=== PATIENT | male | born 1960 | race Caucasian/White ===

== ENCOUNTER → 2019-05-08 14:36 | Outpatient (BNVA) | payer MEDICARE, MEDICAID, SELFPAY | PROVIDERS: Family Provider Family Medicine; PCP Family Medicine; Visit Provider Internal Medicine Rheumatology | DX: L40.50 Arthropathic psoriasis, unspecified (principal); L40.8 Other psoriasis; Z79.899 Other long term (current) drug therapy; Z94.1 Heart transplant status; I10 Essential (primary) hypertension | CPT/HCPCS: 99214 ==

== ENCOUNTER 2020-06-04 11:19 | Outpatient (CLI) | payer MEDICARE, MEDICAID, SELFPAY ==
--- NOTE | 2020-06-04 11:27 | XR_ITS ---
WS: [id number] Right foot, 3 views, 06/04/2020 Clinical Data: ACUTE PAIN OF RIGHT FOOT Comparison: Right foot, 11/17/2015. Findings: No fractures or dislocations are seen. No bone destruction or erosion is noted. There is a bunion of the head of the right first metatarsal. There is a large plantar spur and an Achilles spur. The soft tissues are normal. XR/XR foot RT min 3V* [id number] Impression: Small bunion at the head of the right first metatarsal.
--- NOTE | 2020-06-04 11:27 | XR_ITS ---
WS: [id number] Right ankle, 3 views, 06/04/2020 Clinical Data: ACUTE RIGHT ANKLE PAIN Comparison: None. Findings: No fractures or dislocations are seen. The ankle mortise is normal. There is osteoarthritic change at the tip of the medial malleolus also the lateral malleolus.There is a large plantar spur and an Achi lles spur. XR/XR ankle RT min 3V* [id number] Impression: Osteoarthritic change at the tip of the medial malleolus and also the lateral m alleolus of the right ankle.
== END 2020-06-04 11:20 | disposition home or self-care (01) ==
PROVIDERS: Family Provider Family Medicine; PCP Family Medicine; Visit Provider Nurse Practitioner
DX: M25.571 Pain in right ankle and joints of right foot (principal); M21.611 Bunion of right foot
CPT/HCPCS: 73610; 73630

== ENCOUNTER → 2020-07-21 15:30 | Outpatient (BNVA) | payer MEDICARE, MEDICAID, SELFPAY | PROVIDERS: Family Provider Family Medicine; PCP Family Medicine; Referring Provider Nurse Practitioner; Visit Provider Podiatrist Foot & Ankle Surgery | DX: M79.671 Pain in right foot (principal); M19.071 Primary osteoarthritis, right ankle and foot; M77.31 Calcaneal spur, right foot | CPT/HCPCS: 73630 ==

== ENCOUNTER 2020-08-06 10:46 | Outpatient (CLI) | payer MEDICARE, MEDICAID, SELFPAY ==
--- NOTE | 2020-08-06 11:03 | XR_ITS ---
WS: [id number] Left hip, AP and frog-leg views, 08/06/2020 Clinical Data: PAIN IN LEFT HIP/INJURY Comparison: None. Findings: No fractures or dislocations are seen. The hip joint is intact. The soft tissues are not remarkable. The adjacent pelvis is normal. XR/XR hip LT 2-3V wo/w pel* [id number] Impression: Negative left hip.
== END 2020-08-06 10:47 | disposition home or self-care (01) ==
LOC: RAD 10:58
PROVIDERS: PCP Family Medicine; Visit Provider Nurse Practitioner Family
DX: M25.552 Pain in left hip (principal)
CPT/HCPCS: 73502

== ENCOUNTER 2022-04-13 14:36 | Outpatient (CLI) | payer MEDICARE, MEDICAID, SELFPAY ==
--- NOTE | 2022-04-13 15:52 | XR_ITS ---
WS: [id number] SCREENING DEXA SCAN [facility] CLINICAL INFORMATION: OSTEOPOROSIS COMPARISON: March 08, 2017 FINDINGS: The L1-L4 bone mineral density measures 1.487 g/cm2. This corresponds to a T score score of 2.2 and Z score of 1.9. Left femoral neck bone mineral density measures 1.092 g/cm2. This corresponds to a T score of -0.1 an d Z score of 0.0. Right femoral neck bone mineral density measures 1.082 g/cm2. This corresponds to a T score -0.1of an d Z score of -0.1. Mean femoral neck bone mineral density measures 1.087 g/cm2. This corresponds to a T score of -0.1 an d Z score of 0.0. XR/XR DEXA axial skeleton* [id number] IMPRESSION: Normal bone mineralization. Patient's FRAX calculated 10 year probability for major osteoporotic fracture i s 9.9 % and osteoporotic hip fracture is 1.2%. Bone mineral density lumbar spine has increased 16.5% and increased 5.3% in the femoral necks since 2017.
== END 2022-04-13 14:37 | disposition home or self-care (01) ==
LOC: RAD 14:39
PROVIDERS: PCP Family Medicine; Visit Provider Internal Medicine Rheumatology
DX: M81.0 Age-related osteoporosis without current pathological fracture (principal)
CPT/HCPCS: 77080

== ENCOUNTER 2022-05-04 12:16 | Outpatient (CLI) | payer MEDICARE, MEDICAID, SELFPAY ==
--- NOTE | 2022-05-04 12:32 | XR_ITS ---
WS: [id number] XR shoulder RT min 2V* [id number] REASON FOR EXAM: PAIN IN R SHOULDER FINDINGS: Significant narrowing of the acromioclavicular joint with significant subchondral sclerosis and large marginal osteophytes. Moderate narrowing of the glenohumeral joint with subchondral sclerosis and cystic change in the queta oid. Osteophytosis of the humeral head. There is sclerosis in the greater tuberosity of the humerus with some scalloping of the cortical colleen in. No soft tissue abnormality. 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 Moderate to significant osteoarthritis in the glenohumeral joint. The large inferior osteophytes of the acromioclavicular joint and the configura tion of the greater tuberosity of the humerus suggests the possibility of anter ior impingement and rotator cuff tendinopathy.
== END 2022-05-04 12:17 | disposition home or self-care (01) ==
LOC: RAD 12:20
PROVIDERS: PCP Family Medicine; Visit Provider Nurse Practitioner Family
DX: M19.011 Primary osteoarthritis, right shoulder (principal); M25.711 Osteophyte, right shoulder
CPT/HCPCS: 73030